=== PATIENT | female | born 1975 | race Caucasian/White ===

== ENCOUNTER → 2017-11-13 06:52 | Outpatient (CLI) | payer OTHER, SELFPAY ==
--- NOTE | 2017-11-13 09:00 | ECHOD_ITS ---
Reason For Study: CHF Procedure This was a 2D Doppler, Color Flow transthoracic echocardiogram. The exam was of fair technical quality due to diminished acoustic windows. Exam performed in department. Left Ventricle Mildly dilated left ventricle. Apical false tendon noted. Mild to moderate global left ventricular systolic dysfunction. The estimated ejection fraction is 40 %. Right Ventricle Normal RV size. Normal systolic function. Atria Normal left atrium. Normal right atrium. Aneurysmal atrial septum. Positive agitated saline contrast study (Valsalva / Cough) for a right to left interatrial shunt c/w a small PFO vs. ASD. Mitral Valve There is no mitral annular calcification. Mild diffuse mitral valve thickening. Mild (1+) mitral valve insufficiency. Tricuspid Valve Normal tricuspid valve. Trivial tricuspid valve insufficiency. Right ventricular systolic pressure estimated to be 32 mmHg. Aortic Valve Trisinus/trileaflet aortic valve. Normal aortic valve. Pulmonic Valve Normal pulmonic valve. Trivial pulmonic valve insufficiency. Great Vessels Normal sized aortic root. Pericardium/Pleural No pericardial effusion. Medication 22 gauge I.V. with prn adaptor inserted into left arm. Performed a rapid injection of agitated mix of 9 cc saline and 1cc air to assess for atrial septal defect. MMode/2D Measurements & Calculations LVIDd: 5.5 cm IVSd: 0.89 cm Ao root diam: 2.9 cm LVIDs: 4.9 cm LVPWd: 0.80 cm LA dimension: 3.2 cm RVDd: 2.8 cm FS: 11.4 % LAV(MOD-bp): 53.5 ml LA A4 area: 16.3 cm2 RA A4 area: 12.6 cm2 LAV(MOD-bp) Indexed: 31.6 ml/m2 LAV(MOD-sp2): 46.7 ml LAV(MOD-sp4): 53.6 ml Doppler Measurements & Calculations MV E max braxton: 56.3 cm/sec Lat Peak E' Braxton: 8.5 cm/sec Med Peak E' Braxton: 7.5 cm/sec MV A max braxton: 48.8 cm/sec E/E' lat: 6.6 E/E' med: 7.5 MV E/A: 1.2 Ao V2 max: 117.6 cm/sec LV V1 max: 76.2 cm/sec PA V2 max: 79.5 cm/sec Ao max P.5 mmHg LV V1 max P.3 mmHg TR max braxton: 268.6 cm/sec TR max P.0 mmHg Interpretation Summary Mildly dilated left ventricle. Mild to moderate global left ventricular systolic dysfunction. The estimated ejection fraction is 40 %. Apical false tendon noted. Aneurysmal atrial septum. Mild diffuse mitral valve thickening. Mild (1+) mitral valve insufficiency. Trivial tricuspid valve insufficiency. Trivial pulmonic valve insufficiency. Right ventricular systolic pressure estimated to be 32 mmHg. Positive agitated saline contrast study (Valsalva / Cough) for a right to left interatrial shunt c/w a small PFO vs. ASD. Ordering Physician: Antelmo Galvan Referring Physician: Griffin He Performed By: Gema Santacruz RDCS, RVT
--- NOTE | 2017-11-13 11:51 | PFT ---
INTRODUCTION: The patient is a 42-year-old female currently under the care of Griffin He NP that presents for pulmonary function testing secondary to a diagnosis of cough. Respiratory therapy reports good patient effort and reports no other concerns. Bronchodilators were used during testing. INTERPRETATION: Forced expiration spirometry demonstrates no evidence of a large airways obstructive ventilatory defect. There was a significant response to aerosolized bronchodilators noted in both FEV1 and FVC. Spirograms are of good quality and plateau normally. The respiratory flow volume loop appears normal. Body plethysmography was performed and reveals lung volumes to be within normal limits. Diffusing capacity by single breath CO is at the lower limits of normal at 74% of predicted. IMPRESSION: These pulmonary function studies are essentially within normal limits. There was a significant bronchodilator response noted, nonetheless. This could be a manifestation of quiescent asthma in the appropriate clinical setting. There are no previous pulmonary function studies available for comparison. Clinical correlation is recommended.
== END ==
PROVIDERS: Family Provider Internal Medicine; PCP Internal Medicine; Visit Provider Nurse Practitioner Family
DX: I50.30 Unspecified diastolic (congestive) heart failure (principal)
CPT/HCPCS: 93306; 94060; 94726; 94729; A4216

== ENCOUNTER → 2019-05-25 10:58 | Outpatient (CLI) | payer MEDICAID, SELFPAY ==
[2019-05-13 13:16] VITALS: BMI 25.0
[2019-05-25 13:16] LABS: Anion Gap 6 (5-15); BUN 12 mg/dL (7-18); BUN/Creat Ratio 13.7 RATIO (10-20); Calcium,Total 9.5 mg/dL (8.5-10.1); Chloride 105 mmol/L (98-107); Creatinine, Serum 0.87 mg/dL (0.55-1.02); EST Glomerular Filtration Rate 75 mL/min (>60); Est Glom Filt Rate - Afr Amer 90 mL/min (>60); Glucose 112 mg/dL (74-106); Sodium Level 137 mmol/L (136-145)
== END ==
PROVIDERS: Family Provider Internal Medicine; PCP Internal Medicine; Referring Provider Internal Medicine Cardiovascular Disease; Visit Provider Internal Medicine Cardiovascular Disease
DX: I50.22 Chronic systolic (congestive) heart failure (principal); I42.7 Cardiomyopathy due to drug and external agent; I34.0 Nonrheumatic mitral (valve) insufficiency
CPT/HCPCS: 36415; 80048

== ENCOUNTER → 2019-06-04 14:28 | Outpatient (CLI) | payer MEDICAID, SELFPAY ==
[2019-05-13 13:16] VITALS: BMI 25.0
--- NOTE | 2019-06-04 14:32 | CT_ITS ---
STUDY: CT CHEST WITHOUT CONTRAST REASON FOR EXAM: Female, 43 years old. Multifocal pneumonia, breast cancer RADIATION DOSAGE (If Supplied By Facility): CTDIvol = ( 6.16 ) mGy, DLP = ( 199.22 ) mGycm TECHNIQUE: Transaxial imaging was performed without the administration of intravenous contrast material. Individualized dose optimization techniques were used for this CT. COMPARISON: Chest x-ray 10/28/2017 FINDINGS: Left chest wall port. Mild right upper lobe fibrotic changes. There is no demonstrated pleural abnormality. Cardiomegaly. Multiple prominent right paratracheal lymph nodes are present measuring up to 14 mm in the short axis. Aorticopulmonary window adenopathy with short axis measurement of 12 mm. Normal hilar regions. Normal unenhanced pulmonary arteries. Normal aorta arch and descending thoracic aorta. Normal osseous structures. Bilateral mastectomies and breast reconstructions. Bilateral axillary dissections. There is no demonstrated abnormality of the visualized upper abdomen. CT/Chest without Contrast IMPRESSION: No evidence of pneumonia. Cardiomegaly. Right paratracheal and AP window adenopathy. Electronically Signed: Beck Schwarz MD at 16:53 EDT Tel , Service support ,
== END ==
PROVIDERS: Family Provider Internal Medicine; PCP Internal Medicine; Referring Provider Internal Medicine Critical Care Medicine; Visit Provider Internal Medicine Critical Care Medicine
DX: J18.9 Pneumonia, unspecified organism (principal)
CPT/HCPCS: 71250

== ENCOUNTER → 2019-06-24 14:45 | Outpatient (CLI) | payer MEDICAID, SELFPAY ==
[2019-05-13 13:16] VITALS: BMI 25.0
== END ==
PROVIDERS: Family Provider Internal Medicine; PCP Internal Medicine; Referring Provider Internal Medicine Cardiovascular Disease; Visit Provider Internal Medicine Cardiovascular Disease
DX: I50.22 Chronic systolic (congestive) heart failure (principal); I34.0 Nonrheumatic mitral (valve) insufficiency; I42.7 Cardiomyopathy due to drug and external agent
CPT/HCPCS: 93306; Q9957; A4216; C8929

== ENCOUNTER → 2025-08-17 | Outpatient (CLI) | payer OTHER, SELFPAY ==
--- NOTE | 2025-08-17 09:23 | RAD_ITS ---
RAD/Wrist min 3 Views
== END | disposition home or self-care (01) ==
LOC: MTRAD 09:23
PROVIDERS: PCP Internal Medicine; Referring Provider Nurse Practitioner Family; Visit Provider Nurse Practitioner Family
DX: M25.531 Pain in right wrist (principal)
CPT/HCPCS: 73110

== ENCOUNTER → 2025-09-29 | Outpatient (CLI) | payer OTHER, SELFPAY ==
--- NOTE | 2025-09-29 13:40 | NEURO ---
NCS and/or EMG Patient Report Ordering Doctor: Carlos Galvez DATE OF SERVICE: 09/29/25 Aurelia presents with numbness tingling and pain in both hands. Electrodiagnostic findings: Right median motor nerve demonstrates normal distal latency and amplitude with reduced conduction velocity. Left median motor response within normal limits. Ulnar motor response within normal limits bilaterally. Normal median and ulnar F?waves. Prolonged median sensory latency at the wrist bilaterally. Normal ulnar and radial sensory responses. Needle EMG testing was performed in the upper limbs. All muscles tested showed no evidence of denervation with normal motor unit action potentials. Electrodiagnostic impression: This is an abnormal study in upper limbs. 1. Electrodiagnostic findings suggestive of bilateral median mononeuropathy. This consistent with a mild bilateral carpal tunnel syndrome Multi Select Codes Neurology Neurology Interp Codes: 61492-85 Musc test done w/n test comp (interp) (2) and 43586-66 Nrv cndj test 11-12 studies (interp)
== END | disposition home or self-care (01) ==
LOC: PSN 12:18
PROVIDERS: PCP Internal Medicine; Referring Provider Orthopaedic Surgery; Visit Provider Orthopaedic Surgery
DX: G56.03 Carpal tunnel syndrome, bilateral upper limbs (principal)
CPT/HCPCS: 95886; 95912